=== PATIENT | male | born 1960 | race Caucasian/White ===

== ENCOUNTER 2017-09-19 10:52 | Inpatient (IN) | payer OTHER ==
[~2017-09-19] VITALS: Ht 190.5 cm; Wt 113.4 kg
[~2017-09-19 10:52] MED LIST: PERCOCET 5-3251 EACH PO
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
--- NOTE | 2017-09-19 13:33 | RADIOLOGY REPORT ---
EXAMINATION:\H\ \N\XR CHEST CLINICAL INFORMATION: Recent for rib fractures on the right side with increased pain. COMPARISON: Chest CT 09/18/2017. TECHNIQUE: Frontal view of the chest was obtained. FINDINGS: Study is limited by technique. Mildly displaced right lateral seventh through 10th rib fractures are better demonstrated on the prior CT study. There is a new small right apical pneumothorax. There is no mediastinal shift. There is no opacity at the medial right lung base that may reflect atelectasis, contusion, or pneumonia. Cardiac silhouette size is normal. IMPRESSION: - There is a new small right apical pneumothorax. - There is no opacity at the medial right lung base that may reflect atelectasis, contusion, or pneumonia. - Mildly displaced right lateral seventh through 10th rib fractures are better demonstrated on the prior CT study. Critical findings discussed with Dr. Siegel at 1:29 PM on 09/19/2017.
[2017-09-19 14:03] LABS: ABSOLUTE BASOPHIL COUNT 0 /CUMM (0.0-0.2); ABSOLUTE EOSINOPHIL COUNT 0.1 /CUMM (0.0-0.7); ABSOLUTE GRANULOCYTE CT 6.9 /CUMM (1.4-6.5); ABSOLUTE LYMPH COUNT 1.1 /CUMM (1.2-3.4); ABSOLUTE MONOCYTE COUNT 0.7 /CUMM (0.10-0.60); BASOPHIL % 0.3 % (0.0-2.0); EOSINOPHIL % 0.8 % (0-5); GRANULOCYTE % 79.1 % (42.2-75.2); HEMATOCRIT 44.8 % (42-52); MEAN CORPUSCULAR HGB 33.8 PG (27.0-31.0); MEAN CORPUSCULAR HGB CONC 34.1 G/DL (33.0-37.0); MEAN CORPUSCULAR VOLUME 99.1 FL (80.0-94.0); MEAN PLATELET VOLUME 9.5 FL (7.4-10.4); PLATELET COUNT 165 /CUMM (130-400); RBC DISTRIBUTION WIDTH 13.3 % (11.5-14.5); RED BLOOD CELL CT 4.52 /CUMM (4.70-6.10); WHITE BLOOD CELL COUNT 8.8 /CUMM (4.8-10.8)
--- NOTE | 2017-09-19 16:23 | CT SCAN REPORT ---
EXAMINATION: CT CHEST WITH CONTRAST CLINICAL INFORMATION: Atypical pneumonia. 4 rib fractures. COMPARISON: Chest x-ray 09/19/2017. CT chest 09/18/2017. TECHNIQUE: Multidetector volumetric CT imaging of the chest was obtained after the administration of 95 mL of Optiray 320 intravenous contrast without immediate adverse reactions. Axial MIP volume rendering provided. Sagittal and coronal reformatted images were obtained. DLP: 655.36 mGy-cm FINDINGS: LUNGS: There is dependent atelectasis/consolidation at both lung bases. These are new since the CT of chest 09/18/2017. The lungs are otherwise clear. The central bronchial airways remain open. There is no bronchiectasis. There is a small bleb at the medial left lung apex. There is a small thin-walled lung cyst in the left upper lobe. There is a thin-walled lung cyst also at the right middle lobe of the anterior medial right lung as well as a thin-walled lung cyst in the subpleural lung of the right upper lobe and adjacent intraparenchymal lung cyst in right upper lobe. MEDIASTINUM: No mediastinal mass. No hematoma or fluid collection. There is normal enhancement of the vasculature. There is no pericardial effusion. PLEURA: There is a small right-sided pneumothorax. The pneumothorax is new since the CAT scan of 09/18/2017, similar in volume to the chest x-ray of 09/19/2017, 12:13 PM. There are small dependent bilateral pleural effusions. The pleural effusions are new since the CT chest 09/18/2017. CHEST WALL/AXILLA: There is subcutaneous emphysema along the right lateral chest wall. The volume of the subcutis emphysema has increased since the CAT scan of 09/18/2017. Subcutaneous emphysema is associated with the previously seen fracture of the lateral seventh through 10th ribs. UPPER ABDOMEN: Unremarkable. OSSEOUS STRUCTURES: Fracture of the right lateral seventh through 10th ribs. Degenerative spondylosis of the spine with multilevel disc height narrowing and endplate spurring of the vertebrae. IMPRESSION: 1. Small right-sided pneumothorax with subcutaneous emphysema in the right axilla. 2. Fracture of the lateral seventh through 10th ribs 3. Bibasilar infiltrate/consolidation. 4. Small bibasilar pleural effusions.
--- NOTE | 2017-09-19 17:51 | Cons- Thoracic Surgery ---
Gui Lyon 09/19/17 1743: General Information and HPI Consulting Request Date of Consult: 09/19/17 Requested By: Dr Hernandez, ER Reason for Consult: multiple rib fractures, pneumothorax Source of Information: patient, old records Exam Limitations: no limitations History of Present Illness: This 57-year-old male, long-time smoker, here with complaints of severe right- sided rib and chest wall pain that resulted from a fall that he had down the stairs 2 days ago. He states he tripped and fell, injuring his right side, he came into the emergency room at the time and a CT scan was performed, I have reviewed the records, rib fractures laterally of ribs 7 through 10 were noted however patient, according to the notes, was doing well, his pain was controlled , he was not hypoxic and was discharged home with instructions for close follow- up. Pain medication at home was not helping him, his pain became more severe, he started feeling more short of breath, he could not get up out of a chair or out of the bed due to the pain. He started getting some mild productive sputum, no blood. He presented to the emergency room for further evaluation where another CT scan was performed which showed a small right apical pneumothorax and small amount of subcu air in the right axilla. Thoracic surgery was consulted for further evaluation and management Allergies/Medications Allergies: Coded Allergies: No Known Drug Allergies (NKDA 09/17/17) Home Med List: Oxycodone HCl/Acetaminophen (Percocet 5-325 MG Tablet) 5 MG-325 MG TABLET 1 TAB PO 4 TIMES/DAY PRN SEVERE PAIN Past History Medical History Cardiovascular: hypertension Surgical History Pertinent Surgical History: non-contributory Psychosocial History Smoking Status: Current Everyday Smoker Functional Ability ADLs Independent: dressing, eating, toileting, bathing. Review of Systems Review of Systems: Review of systems: See HPI, all other systems negative. Constitutional: No chills fever or weight loss HEENT: No visual changes no sore throat no congestion Cardiovascular: No chest pain ,palpitation , orthopnea or ankle swelling Skin: No jaundice no rashes Respiratory: See HPI GI: No nausea no vomiting : No dysuria no hematuria Musclulo skeletal: No back pain no neck pain, Neurologic: No numbness no confusion Psych: No stress anxiety or depression,. Heme/endocrine: No bruising no bleeding no polyuria or polydipsia Immunology: No splenectomy or history of AIDS Exam & Diagnostic Data Vital Signs and I&O Vital Signs Date Time Temp Pulse Resp B/P B/P Pulse O2 O2 Flow FiO2 Mean Ox Delivery Rate 09/19 1656 98.0 79 20 180/94 95 Room Air 09/19 1413 98.5 79 18 186/90 96 Room Air 09/19 1214 94 Room Air Room Air 09/19 1213 98.7 75 20 160/106 94 Room Air Room Air 09/19 1100 98.0 101 179/106 92 Room Air Intake & Output 09/19 1600 09/19 0800 09/19 0000 09/18 1600 09/18 0800 09/18 0000 Intake Total 0 Output Total Balance 0 Intake, Oral 0 Patient 255 lb Weight Weight Reported by Patient Measurement Method Physical Exam: Well-developed well-nourished person in no acute distress HEENT: Normal EENT exam, Pharynx normal. No swelling or edema. Neck: Supple, no lymphadenopathy, normal range of motion without pain or tenderness Trachea is midline, no deviation Cardiovascular: Regular rate and rhythms no murmurs, normal JVP Respiratory: Tenderness to the right midaxillary line diffusely. Small amount of ecchymosis noted. No subcu air was noted or crepitus was noted on exam. Patient exquisitely tender on exam. Had a difficult time taking a deep breath. Lung sounds show crackles noted bilaterally, right significantly more than left , mostly noted at the base. Also bilateral expiratory wheezing noted Breath sounds noted in all lung calderon Abdomen: Soft, nontender nondistended, no appreciable organomegaly. Normal bowel sounds. No ascites Extremity: No edema, no calf tenderness to palpation, normal and equal pulses. Neuro: Alert oriented x3, motor sensory normal, cranial nerves II through XII grossly intact. Skin: No appreciable rash on exposed skin, skin is warm and dry. Psych: Mood and affect is normal, memory and judgment is normal. Last 24 Hours of Labs: Laboratory Tests 09/19 1355 Chemistry Sodium (137 - 145 mmol/L) 141 Potassium (3.5 - 5.1 mmol/L) 4.0 Chloride (98 - 107 mmol/L) 104 Carbon Dioxide (22 - 30 mmol/L) 29 Anion Gap (5 - 16) 8 BUN (9 - 20 mg/dL) 17 Creatinine (0.7 - 1.2 mg/dL) 0.7 Estimated GFR (>60 ml/min) > 60 BUN/Creatinine Ratio (7 - 25 %) 24.3 Glucose (65 - 99 mg/dL) 99 Calcium (8.4 - 10.2 mg/dL) 8.8 Total Bilirubin (0.2 - 1.3 mg/dL) 1.6 H AST (17 - 59 U/L) 16 L ALT (21 - 72 U/L) 22 Alkaline Phosphatase (< 127 U/L) 73 Total Protein (6.3 - 8.2 g/dL) 6.7 Albumin (3.5 - 5.0 g/dL) 4.1 Globulin (1.9 - 4.2 gm/dL) 2.6 Albumin/Globulin Ratio (1.1 - 2.2 %) 1.6 Hematology CBC w Diff NO MAN DIFF REQ WBC (4.8 - 10.8 /CUMM) 8.8 RBC (4.70 - 6.10 /CUMM) 4.52 L Hgb (14.0 - 18.0 G/DL) 15.3 Hct (42 - 52 %) 44.8 MCV (80.0 - 94.0 FL) 99.1 H MCH (27.0 - 31.0 PG) 33.8 H MCHC (33.0 - 37.0 G/DL) 34.1 RDW (11.5 - 14.5 %) 13.3 Plt Count (130 - 400 /CUMM) 165 MPV (7.4 - 10.4 FL) 9.5 Gran % (42.2 - 75.2 %) 79.1 H Lymphocytes % (20.5 - 51.1 %) 12.3 L Monocytes % (1.7 - 9.3 %) 7.5 Eosinophils % (0 - 5 %) 0.8 Basophils % (0.0 - 2.0 %) 0.3 Absolute Granulocytes (1.4 - 6.5 /CUMM) 6.9 H Absolute Lymphocytes (1.2 - 3.4 /CUMM) 1.1 L Absolute Monocytes (0.10 - 0.60 /CUMM) 0.7 H Absolute Eosinophils (0.0 - 0.7 /CUMM) 0.1 Absolute Basophils (0.0 - 0.2 /CUMM) 0 Imaging Results: PATIENT: JACOB CRANE PRESENT AGE: 57 PATIENT ACCOUNT NO: [id number] : 60 LOCATION: [facility] ORDERING PHYSICIAN: Salvador RESTREPO SERVICE DATE: 09/19/171 EXAM TYPE: CAT - CT CHEST W IV CONTRAST EXAMINATION: CT CHEST WITH CONTRAST CLINICAL INFORMATION: Atypical pneumonia. 4 rib fractures. COMPARISON: Chest x-ray 09/19/2017. CT chest 09/18/2017. TECHNIQUE: Multidetector volumetric CT imaging of the chest was obtained after the administration of 95 mL of Optiray 320 intravenous contrast without immediate adverse reactions. Axial MIP volume rendering provided. Sagittal and coronal reformatted images were obtained. DLP: 655.36 mGy-cm FINDINGS: LUNGS: There is dependent atelectasis/consolidation at both lung bases. These are new since the CT of chest 09/18/2017. The lungs are otherwise clear. The central bronchial airways remain open. There is no bronchiectasis. There is a small bleb at the medial left lung apex. There is a small thin-walled lung cyst in the left upper lobe. There is a thin-walled lung cyst also at the right middle lobe of the anterior medial right lung as well as a thin-walled lung cyst in the subpleural lung of the right upper lobe and adjacent intraparenchymal lung cyst in right upper lobe. MEDIASTINUM: No mediastinal mass. No hematoma or fluid collection. There is normal enhancement of the vasculature. There is no pericardial effusion. PLEURA: There is a small right-sided pneumothorax. The pneumothorax is new since the CAT scan of 09/18/2017, similar in volume to the chest x-ray of 09/19/2017, 12:13 PM. There are small dependent bilateral pleural effusions. The pleural effusions are new since the CT chest 09/18/2017. CHEST WALL/AXILLA: There is subcutaneous emphysema along the right lateral chest wall. The volume of the subcutis emphysema has increased since the CAT scan of 09/18/2017. Subcutaneous emphysema is associated with the previously seen fracture of the lateral seventh through 10th ribs. UPPER ABDOMEN: Unremarkable. OSSEOUS STRUCTURES: Fracture of the right lateral seventh through 10th ribs. Degenerative spondylosis of the spine with multilevel disc height narrowing and endplate spurring of the vertebrae. IMPRESSION: 1. Small right-sided pneumothorax with subcutaneous emphysema in the right axilla. 2. Fracture of the lateral seventh through 10th ribs 3. Bibasilar infiltrate/consolidation. 4. Small bibasilar pleural effusions. DICTATED BY: Surjit Subramanian MD DATE/TIME DICTATED:09/19/171607 PIANO PLAYER:WEI DATE/TIME TRANSCRIBED:09/19/17 Assessment/Plan Assessment/Plan 57-year-old male with rib fractures on the right side, ribs 7 through 10 laterally as well as a small apical pneumothorax and small amount of subcu air that resulted from a fall 2 days ago. Recommend admission to the medical service for further monitoring of unstable vital signs. He may require submental oxygen if he becomes tachycardic or hypoxic. He should be given adequate pain control Recommend repeat chest x-ray in the morning DVT prophylaxis as he is largely immobile due to pain Concern for possible consolidation as seen on CT scan, patient without systemic signs of infection, no fever, normal white blood cell count, minimally productive sputum although he is a smoker and is at increased risk for pneumonia. Would hold off on antibiotics at this time and monitor for signs of infection. Case discussed with Dr. Donnelly, will follow along with you Problem List: 1. Rib fracture 2. Pneumothorax Consult Acknowledgment - Thank you for your consult request. Kike Donnelly MD 09/20/17 8801: Assessment/Plan Consult Acknowledgment - Thank you for your consult request. Attending Review Statement Attending Statement Attending Statement: examined this patient, discuss w/resident/PA/TUBERCULOSIS SPECIALIST, agreed w/resident/PA/TUBERCULOSIS SPECIALIST Attending Assessment/Plan: Given the fact that the patient is more than 48 hours out from the injury I agree that no trauma center transfer is necessary. I am concerned that the findings at the right base might be related to a pulmonary contusion but given his clinical stability I think we are okay with observation alone. The tiny amount of air in the right hemithorax does not require any degree of intervention. Main issue is 1 of appropriate pain management.
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
[2017-09-19 20:27] VITALS: BP 180/90
[2017-09-19 22:49] VITALS: BP 180/80
[2017-09-20 00:33] VITALS: BP 166/90
[2017-09-20 07:03] VITALS: BP 168/86
--- NOTE | 2017-09-20 07:21 | PN- Housestaff ---
Subjective Follow-up For: Rib fracture with associated pneumothorax Uncontrolled hypertension Subjective: No overnight events. Patient remained afebrile. Seen and examined this morning. Patient denied short of breath, nausea, vomiting, chills, fever, abdominal pain, palpitation, orthopnea and dysuria. Patient reported that he has chest pain on the right side due to broken rib 11/12 and it increases with taking the breast. Patient also reported having cough probably due to atelectasis. There is no subcutaneous emphysema or bruise on the right side. Patient having shallow breathing that's why he was put on 2 L of oxygen although he was maintaining a saturation above 92% on room air. Review of Systems Constitutional: Denies: chills, fever, weakness. EENTM: Reports: no symptoms. Cardiovascular: Reports: chest pain. Denies: orthopena, palpitations, syncope. Respiratory: Reports: cough. Denies: short of breath, sputum production, wheezing. Gastrointestinal: Denies: abdominal pain, constipation, diarrhea, nausea, vomiting. Genitourinary: Reports: no symptoms. Musculoskeletal: Reports: see HPI. Neurological/Psychological: Reports: no symptoms. Objective Last 24 Hrs of Vital Signs/I&O Vital Signs Date Time Temp Pulse Resp B/P B/P Pulse O2 O2 Flow FiO2 Mean Ox Delivery Rate 09/20 0903 97 Nasal 2.0L Cannula 09/20 0800 96 Nasal 2.0L Cannula 09/20 0703 97.8 72 18 168/86 96 09/20 0033 97.9 78 17 166/90 97 09/19 2325 180/80 09/19 2249 98.1 86 20 180/80 96 Nasal 2.0L Cannula 09/19 2135 Nasal 2.0L Cannula 09/19 2026 97.9 80 22 180/90 92 Room Air 09/20 2019 96 Nasal 2.0L Cannula 09/20 2003 97.8 96 14 144/84 94 Room Air 09/19 1656 98.0 79 20 180/94 95 Room Air 09/19 1413 98.5 79 18 186/90 96 Room Air 09/19 1214 94 Room Air Room Air 09/19 1213 98.7 75 20 160/106 94 Room Air Room Air Intake & Output 09/20 1600 09/20 0800 09/20 0000 Intake Total 500 490 Output Total 200 500 Balance 300 -10 Intake, IV 20 10 Intake, Oral 480 480 Output, Urine 200 500 Patient 250 lb 250 lb Weight Physical Exam General Appearance: Alert, Oriented X3, Cooperative Skin Temp/Moisture Exam: Warm/Dry Sepsis Skin Exam (color): Normal for Ethnicity HEENT: Atraumatic, PERRLA, EOMI Neck: Supple Cardiovascular: Normal S1, Normal S2 Lungs: Clear to Auscultation Abdomen: Soft, No Tenderness Neurological: Normal Speech, Strength at 5/5 X4 Ext, Normal Tone Extremities: No Edema Assessment/Plan Assessment: 57 YO M smoker (one and half pack/d for 30 yrs) with PMH of HTN and nephrolithiasis presented to ED with chief complaint of right-sided chest pain after fall. We are seeing the patient for following problems: Rib fracture with associated pneumothorax: -Patient had refractions after mechanical fall from stairs. -Pain control with tramadol 30 mg every 6 when necessary and Dilaudid for breakthrough pain. -Monitor for hemodynamic instability and shortness of breath. -On physical examination there is no subcutaneous emphysema. -Incentive spirometry to expand his lungs as he is developed atelectasis. -Incentive patient's shallow breathing he was put on 2 L of oxygen although he was maintaining saturation 92% on room air. -We will keep him off antibiotics as he is afebrile although his WBC count is elevated. Patient having atelectasis on imaging study. -Follow-up CT surgery recommendations -Repeat chest x-ray that was portable, didn't show any right-sided hemopneumothorax or lung contusion. Uncontrolled hypertension: -Patient was not on any antihypertensive medications although he has history of hypertension. -Patient had persistent elevated blood pressure so we will start him on antihypertensive medications. -On admission patient's blood pressure was elevated H/O smoking: -Smoking cessation counselling. -Nicotine patch as needed. History of COPD: -We will continue albuterol inhaler -Although patient was not using any inhaler at home. DVT prophylaxis: Mechanical and subcutaneous Lovenox CODE STATUS: Full code Problem List: 1. Pneumothorax 2. Rib fracture Pain Ratin Pain Location: right sided chest wall Pain Goal: Remain pain free Pain Plan: pain pathway Tomorrow's Labs & Rationales: none
[2017-09-20 09:08] LABS: ABSOLUTE BASOPHIL COUNT 0.1 /CUMM (0.0-0.2); ABSOLUTE EOSINOPHIL COUNT 0.2 /CUMM (0.0-0.7); ABSOLUTE GRANULOCYTE CT 4.9 /CUMM (1.4-6.5); ABSOLUTE LYMPH COUNT 1.1 /CUMM (1.2-3.4); ABSOLUTE MONOCYTE COUNT 0.6 /CUMM (0.10-0.60); BASOPHIL % 0.8 % (0.0-2.0); EOSINOPHIL % 2.9 % (0-5); GRANULOCYTE % 71.2 % (42.2-75.2); HEMATOCRIT 42.2 % (42-52); MEAN CORPUSCULAR HGB 34.3 PG (27.0-31.0); MEAN CORPUSCULAR HGB CONC 34.5 G/DL (33.0-37.0); MEAN CORPUSCULAR VOLUME 99.3 FL (80.0-94.0); MEAN PLATELET VOLUME 10.1 FL (7.4-10.4); PLATELET COUNT 151 /CUMM (130-400); RBC DISTRIBUTION WIDTH 13.5 % (11.5-14.5); RED BLOOD CELL CT 4.25 /CUMM (4.70-6.10); WHITE BLOOD CELL COUNT 6.8 /CUMM (4.8-10.8)
--- NOTE | 2017-09-20 11:03 | RADIOLOGY REPORT ---
EXAMINATION: XR PORTABLE CHEST CLINICAL INFORMATION: Shortness of breath. COMPARISON: CT of the chest done on 09/19/2017. TECHNIQUE: Portable frontal semierect 70 degrees view of the chest was obtained. FINDINGS: The CT-detected displaced fractures of right lateral 7th through 10th ribs are not well visualized on this limited portable semierect frontal view of the chest. Subcutaneous emphysema however is visualized overlying the right lateral costophrenic sulcus region. There is no evidence of any definite pneumothorax or hemothorax identified. Both lungs are symmetrically expanded. The cardiomediastinal silhouette is within normal limits and is centrally located. Dedicated rib series may be considered if clinically appropriate for reevaluation of clinically known recent CT-detected right lower hemithoracic rib fractures. Visualized upper abdomen is unremarkable. IMPRESSION: 1. Clinically known displaced right hemithoracic rib fractures as were detected on the CT scan of the chest done on 09/19/2017 are not well visualized on this portable radiograph. Small subcutaneous emphysema however is visualized overlying the right lateral chest wall at the level of the lateral costophrenic sulcus. 2. No radiographic evidence of right-sided hemopneumothorax or lung contusion. Dedicated rib series may be considered if clinically appropriate for reevaluation of clinically known, recent CT-detected right lower hemithoracic rib fractures.
--- NOTE | 2017-09-20 14:23 | PN- Att Addend ---
Attending Addendum Attending Brief Note Patient seen and examined. Plan of care discussed with the medical team and the patient. Available lab work and radiology test reports were reviewed. Patient appears to be in [id number] distress due to pain. He is not able to take deep breath due to right chest pain. Exam: General: Patient awake alert oriented without any distress CVS: S1 plus S2 without any murmur or gallops Chest: Tender right lateral chest and appears to be taking shallow breaths. No subcutaneous emphysema under the skin is noted. Few scattered crepitation without any wheeze. There is no respiratory distress. 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 follow-up pneumothorax Current Medications Sig/Gisela Start time Last Medication Dose Route Stop Time Status Admin Albuterol Sulfate 3 ML BID 09/20 09 AC 09/20 INH 0902 Amlodipine Besylate 5 MG ONCE ONE 09/19 2215 DC 09/19 PO 09/19 2216 2325 Enoxaparin Sodium 40 MG DAILY 09/20 0900 AC 09/20 SC 0823 Hydromorphone HCl 2 MG Q4P PRN 09/20 1415 AC PO Hydromorphone HCl 2 MG Q4 HRS NEEDED PRN 09/20 0900 DC IV Hydromorphone HCl 2 MG Q6P PRN 09/19 1830 DC 09/20 IV 0406 Hydromorphone HCl 0 .STK-MED ONE 09/19 1700 DC .ROUTE Hydromorphone HCl 1 MG ONCE ONE 09/19 1645 DC 09/19 IV 09/19 1646 1700 Ketorolac 30 MG Q6P PRN 09/20 0915 AC 09/20 Tromethamine IV 0933 Ketorolac 15 MG Q6P PRN 09/19 1815 DC Tromethamine IV 09/21 1814 Nicotine 0 .STK-MED ONE 09/19 194 DC TOP Nicotine 21 MG DAILY 09/19 1856 AC 09/20 TOP 0823 Oxycodone HCl 5 MG Q6P PRN 09/19 1815 DC PO Tramadol HCl 0 .STK-MED ONE 09/19 191 DC PO Tramadol HCl 50 MG Q6P PRN 09/19 1830 DC 09/20 PO 0823 Laboratory Tests 09/20/17 0750: Anion Gap 11, Estimated GFR > 60, BUN/Creatinine Ratio 22.9, CBC w Diff NO MAN DIFF REQ, RBC 4.25 L, MCV 99.3 H, MCH 34.3 H, MCHC 34.5, RDW 13.5, MPV 10.1, Gran % 71.2, Lymphocytes % 16.5 L, Monocytes % 8.6, Eosinophils % 2.9, Basophils % 0.8, Absolute Granulocytes 4.9, Absolute Lymphocytes 1.1 L, Absolute Monocytes 0.6, Absolute Eosinophils 0.2, Absolute Basophils 0.1 09/19/17 1355: Anion Gap 8, Estimated GFR > 60, BUN/Creatinine Ratio 24.3, Glucose 99, Calcium 8.8, Total Bilirubin 1.6 H, Direct Bilirubin 0.3, AST 16 L, ALT 22, Alkaline Phosphatase 73, Total Protein 6.7, Albumin 4.1, Globulin 2.6, Albumin/Globulin Ratio 1.6, CBC w Diff NO MAN DIFF REQ, RBC 4.52 L, MCV 99.1 H, MCH 33.8 H, MCHC 34.1, RDW 13.3, MPV 9.5, Gran % 79.1 H, Lymphocytes % 12.3 L, Monocytes % 7.5, Eosinophils % 0.8, Basophils % 0.3, Absolute Granulocytes 6.9 H, Absolute Lymphocytes 1.1 L, Absolute Monocytes 0.7 H, Absolute Eosinophils 0.1, Absolute Basophils 0 Vital Signs Date Time Temp Pulse Resp B/P B/P Pulse O2 O2 Flow FiO2 Mean Ox Delivery Rate 09/20 0903 97 Nasal 2.0L Cannula 09/20 0800 96 Nasal 2.0L Cannula 09/20 0703 97.8 72 18 168/86 96 09/20 0033 97.9 78 17 166/90 97 09/19 2325 180/80 09/19 2249 98.1 86 20 180/80 96 Nasal 2.0L Cannula 09/19 2134 Nasal 2.0L Cannula 09/19 2026 97.9 80 22 180/90 92 Room Air 09/20 2019 96 Nasal 2.0L Cannula 09/20 2003 97.8 96 14 144/84 94 Room Air 09/19 1656 98.0 79 20 180/94 95 Room Air Intake & Output 09/20 1600 09/20 0800 09/20 0000 Intake Total 500 490 Output Total 200 500 Balance 300 -10 Intake, IV 20 10 Intake, Oral 480 480 Output, Urine 200 500 Patient 250 lb 250 lb Weight Chest x-ray 1. Clinically known displaced right hemithoracic rib fractures as were detected on the CT scan of the chest done on 09/19/2017 are not well visualized on this portable radiograph. Small subcutaneous emphysema however is visualized overlying the right lateral chest wall at the level of the lateral costophrenic sulcus. 2. No radiographic evidence of right-sided hemopneumothorax or lung contusion. Dedicated rib series may be considered if clinically appropriate for reevaluation of clinically known, recent CT-detected right lower hemithoracic rib fractures.
--- NOTE | 2017-09-20 14:49 | PN- Thoracic Surgery ---
Subjective Subjective: Patient is having a considerable amount of pain with breathing. He is unable to move around in any comfortable way. Recent changes were made to his pain medication. Objective Vital Signs and I&Os Vital Signs Date Time Temp Pulse Resp B/P B/P Pulse O2 O2 Flow FiO2 Mean Ox Delivery Rate 09/20 0903 97 Nasal 2.0L Cannula 09/20 0800 96 Nasal 2.0L Cannula 09/20 0703 97.8 72 18 168/86 96 09/20 0033 97.9 78 17 166/90 97 09/19 2325 180/80 09/19 2249 98.1 86 20 180/80 96 Nasal 2.0L Cannula 09/19 2135 Nasal 2.0L Cannula 09/197 97.9 80 22 180/90 92 Room Air 09/20 2019 96 Nasal 2.0L Cannula 09/20 2003 97.8 96 14 144/84 94 Room Air 09/19 1656 98.0 79 20 180/94 95 Room Air Intake & Output 09/20 1600 09/20 0800 09/20 0000 09/19 1600 09/19 0800 09/19 0000 Intake Total 620 500 490 0 Output Total 400 200 500 Balance 220 300 -10 0 Intake, IV 20 10 Intake, Oral 620 480 480 0 Number 0 Bowel Movements Output, Urine 400 200 500 Patient 250 lb 250 lb 255 lb Weight Weight Reported by Patient Measurement Method Physical Exam: Fair amount of splinting on the right side related to pleuritic pain. There is no appreciable crepitus. The breath sounds are clear. Results Last 48 Hours of Labs: Laboratory Tests 09/20 09/19 0750 1355 Chemistry Sodium (137 - 145 mmol/L) 144 141 Potassium (3.5 - 5.1 mmol/L) 4.1 4.0 Chloride (98 - 107 mmol/L) 103 104 Carbon Dioxide (22 - 30 mmol/L) 30 29 Anion Gap (5 - 16) 11 8 BUN (9 - 20 mg/dL) 16 17 Creatinine (0.7 - 1.2 mg/dL) 0.7 0.7 Estimated GFR (>60 ml/min) > 60 > 60 BUN/Creatinine Ratio (7 - 25 %) 22.9 24.3 Glucose (65 - 99 mg/dL) 99 Calcium (8.4 - 10.2 mg/dL) 8.8 Total Bilirubin (0.2 - 1.3 mg/dL) 1.6 H Direct Bilirubin (< 0.4 mg/dL) 0.3 AST (17 - 59 U/L) 16 L ALT (21 - 72 U/L) 22 Alkaline Phosphatase (< 127 U/L) 73 Total Protein (6.3 - 8.2 g/dL) 6.7 Albumin (3.5 - 5.0 g/dL) 4.1 Globulin (1.9 - 4.2 gm/dL) 2.6 Albumin/Globulin Ratio (1.1 - 2.2 %) 1.6 Hematology CBC w Diff NO MAN DIFF REQ NO MAN DIFF REQ WBC (4.8 - 10.8 /CUMM) 6.8 8.8 RBC (4.70 - 6.10 /CUMM) 4.25 L 4.52 L Hgb (14.0 - 18.0 G/DL) 14.6 15.3 Hct (42 - 52 %) 42.2 44.8 MCV (80.0 - 94.0 FL) 99.3 H 99.1 H MCH (27.0 - 31.0 PG) 34.3 H 33.8 H MCHC (33.0 - 37.0 G/DL) 34.5 34.1 RDW (11.5 - 14.5 %) 13.5 13.3 Plt Count (130 - 400 /CUMM) 151 165 MPV (7.4 - 10.4 FL) 10.1 9.5 Gran % (42.2 - 75.2 %) 71.2 79.1 H Lymphocytes % (20.5 - 51.1 %) 16.5 L 12.3 L Monocytes % (1.7 - 9.3 %) 8.6 7.5 Eosinophils % (0 - 5 %) 2.9 0.8 Basophils % (0.0 - 2.0 %) 0.8 0.3 Absolute Granulocytes (1.4 - 6.5 /CUMM) 4.9 6.9 H Absolute Lymphocytes (1.2 - 3.4 /CUMM) 1.1 L 1.1 L Absolute Monocytes (0.10 - 0.60 /CUMM) 0.6 0.7 H Absolute Eosinophils (0.0 - 0.7 /CUMM) 0.2 0.1 Absolute Basophils (0.0 - 0.2 /CUMM) 0.1 0 Recent Imaging Studies: Chest x-ray stable with no new infiltrates and no pneumothorax. Assessment/Plan Assessment/Plan Expected pleuritic chest pain related to rib fractures. Our most important objective here is pain management. If there is any desaturation then he needs immediate transfer to a trauma facility.
[2017-09-20 15:21] VITALS: BP 170/96
--- NOTE | 2017-09-20 16:30 | Discharge Summary ---
Visit Information Visit Dates Admission Date: 09/19/17 Hospital Course Course Attending Physician: Damari Clayton MD Primary Care Physician: Patient Has No Primary Care Dr Hospital Course: Patient is a 57-year-old gentleman with no significant past medical history except for smoking(smokes one half pack a day for the last 30 years), history of arthritis nephrolithiasis presented to the ED for the evaluation of persistent right-sided chest pain. Patient was seen in the ER about 2 days ago when he tripped and fell on chairs after power breakdown from the stump missed 10-15 stairs, he had on the right side of his chest and couldn't able to get up due to excruciating pain. In the ER, images revealed multiple rib fractures and he was discharged patient was discharged with Percocet and Motrin , patient took pain medications at home without any improvement in his symptoms and came back to the ER again for better pain control. Chest x-ray/CT chest done in the ER revealed Fracture of the lateral seventh through 10th ribs along with Small right-sided pneumothorax with subcutaneous emphysema in the right axilla. Multiple rib fracture with associated small pneumothorax: Patient was admitted to the [facility] floor he was started on tramadol and IV Dilaudid for severe pain. Thoracic surgery consult was obtained as per recommendations patient was conservatively managed with IV Dilaudid, IV Tylenol and tramadol. He received incentive spirometry to prevent atelectasis. Despite of enough pain medications patient continued to remain in persistent pain and was transferred to trauma Center there are on for better pain management and if needed for any other interventions Uncontrolled hypertension: Patient's blood pressure was high on admission likely due to severe pain at the fracture sites, also he had a history of hypertension diagnosed as an outpatient but he was not on any medications. He was started on Norvasc 5 mg daily for better blood pressure control H/O smoking: Smoking cessation counseling was done and she was started on nicotine patch -Smoking cessation counselling. -Nicotine patch as needed. DVT prophylaxis: Mechanical and subcutaneous Lovenox CODE STATUS: Full code Allergies: Coded Allergies: No Known Drug Allergies (NKDA 09/17/17) Disposition Summary Disposition Principal Diagnosis: Multiple rib fracture with associated small pneumothorax Additional Diagnosis: Current smoker, uncontrolled blood pressure likely due to severe pain Discharge Disposition: other general hospital Discharge Instructions General Discharge Information Code Status: Full Code Patient's Diet: Regular diet Patient's Activity: As tolerated Follow-Up Instructions/Appts: Patient will be transferred to the trauma Center for better pain management and further interventions Medications at Discharge Discharge Medications: Continue taking these medications: Oxycodone HCl/Acetaminophen (Percocet 5-325 MG Tablet) 5 MG-325 MG TABLET 1 Tablet ORAL 4 TIMES A DAY as needed for SEVERE PAIN Qty = 10 Start taking the following new medications: Gabapentin (Gabapentin) 100 MG CAPSULE 1 Tablet ORAL EVERY 8 HOURS Qty = 30 No Refills Albuterol Sulfate (Albuterol Sulfate) 2.5 MG/3 ML (0.083 %) VIAL.NEB 3 Milliliters Inhale through mouth TWICE DAILY Qty = 4 No Refills Lidocaine (Lidocaine) 5 % ADH..PATCH 1 Patch On the skin DAILY Qty = 30 No Refills
[2017-09-20] MEDS ORDERED: LIDOCAINE1 EACH TOP (17:18)
[2017-09-20] MEDS ORDERED: GABAPENTIN100 M2 PO (17:18)
[2017-09-20] MEDS ORDERED: ALBUTEROL2.5 MG/3 M INH (17:23)
--- NOTE | 2017-09-20 17:27 | Patient Discharge Instructions ---
Discharge Instructions General Discharge Information You were seen/treated for: Rib fracture after a mechanical fall with associated pneumothorax Uncontrolled HTN Watch for these problems: Increase in pain, shortness of breath, light headedness, nausea, vomiting, syncope and palpitation. If you experience any of these symptoms please come to ED or call to your pcp. Special Instructions: Follow up with primary care physician in one week. Diet Recommended Diet: Regular Activity Activity Self Limited: Yes Acute Coronary Syndrome Inclusion Criteria At DC or during hospital stay patient has or had the following: ACS DIAGNOSIS No Discharge Core Measures Meds if any: Prescribed or Continued at Discharge Meds if any: NOT Prescribed or Continued at Discharge Congestive Heart Failure Inclusion Criteria At DC or during hospital stay patient has or had the following: CHF DIAGNOSIS No Discharge Core Measures Meds if any: Prescribed or Continued at Discharge Meds if any: NOT Prescribed or Continued at Discharge Cerebrovascular accident Inclusion Criteria At DC or during hospital stay patient has or had the following: CVA/TIA Diagnosis No Discharge Core Measures Meds if any: Prescribed or Continued at Discharge Meds if any: NOT Prescribed or Continued at Discharge Venous thromboembolism Inclusion Criteria VTE Diagnosis No VTE Type NONE VTE Confirmed by (Test) NONE Discharge Core Measures - Per Current guidelines, there needs to be overlap - treatment for the first 5 days of Warfarin therapy. - If discharged on Warfarin prior to 5 days of - overlap therapy, the patient will need to be - assessed for post discharge needs including - *Post discharge parental anticoagulation - *Warfarin and/or parental anticoagulation education - *Follow up date to check INR post discharge At least 5 days overlap therapy as Inpatient No Meds if any: Prescribed or Continued at Discharge Note: Overlap Therapy is Warfarin and Anticoagulant Meds if any: NOT Prescribed or Continued at Discharge
[2017-09-20 22:00] VITALS: BP 164/86
[2017-09-21 07:31] VITALS: BP 166/93
--- NOTE | 2017-09-21 09:02 | PN- Housestaff ---
Asia GUIDO,Swati 09/21/17 0902: Subjective Follow-up For: Rib fracture with associated pneumothorax Uncontrolled hypertension Subjective: Patient had no overnight events, he denies shortness of breath, nausea, vomiting , abdominal pain. Patient continues to have chest pain that is worse on inspiration and patient continues to have a cough. Patient continues on 2 L of oxygen and is satting at 96%. Review of Systems Constitutional: Reports: no symptoms. EENTM: Reports: no symptoms. Cardiovascular: Reports: chest pain. Respiratory: Reports: cough. Gastrointestinal: Reports: no symptoms. Musculoskeletal: Reports: no symptoms. Skin: Reports: no symptoms. Objective Last 24 Hrs of Vital Signs/I&O Vital Signs Date Time Temp Pulse Resp B/P B/P Pulse O2 O2 Flow FiO2 Mean Ox Delivery Rate 09/21 1600 Nasal 2.0L Cannula 09/21 1412 98.1 83 20 142/66 96 09/21 1040 95 Nasal 2.0L Cannula 09/21 0848 76 166/93 09/21 0731 98.1 76 20 166/93 96 Nasal Cannula 09/21 0229 95 09/21 0000 97 Nasal 2.0L Cannula 09/20 2200 98.6 81 20 164/86 97 Nasal 2.0L Cannula 09/20 1949 96 Nasal 2.0L Cannula Intake & Output 09/21 1600 09/21 0800 09/21 0000 Intake Total 800 Output Total 400 400 600 Balance 400 -400 -600 Intake, Oral 800 Output, Urine 400 400 600 Physical Exam General Appearance: Alert, Oriented X3, Cooperative Skin: No Rashes, No Breakdown, No Significant Lesion Skin Temp/Moisture Exam: Warm/Dry Sepsis Skin Exam (color): Normal for Ethnicity HEENT: Atraumatic, EOMI, Mucous Membr. moist/pink Cardiovascular: Regular Rate, Normal S1, Normal S2, No Murmurs Lungs: Clear to Auscultation, Normal Air Movement Abdomen: Normal Bowel Sounds, Soft, No Tenderness Extremities: No Clubbing, No Cyanosis, No Edema Current Medications: Current Medications Sig/Gisela Start time Last Medication Dose Route Stop Time Status Admin Acetaminophen 1,000 MG TID 09/20 1516 DC 09/21 IV 09/21 1515 1336 Albuterol Sulfate 3 ML BID 09/20 0900 AC 09/21 INH 1040 Amlodipine Besylate 2.5 MG DAILY 09/20 1737 AC 09/21 PO 0848 Docusate Sodium 100 MG DAILY NEEDED PRN 09/21 0800 AC 09/21 PO 0848 Enoxaparin Sodium 40 MG DAILY 09/20 0900 AC 09/21 SC 0852 Gabapentin 100 MG Q8 09/20 1534 AC 09/21 PO 1336 Hydromorphone HCl 3 MG Q2P PRN 09/20 1530 AC 09/21 IV 1649 Ketorolac 30 MG Q6P PRN 09/20 1530 AC Tromethamine IV Lidocaine 1 PAT DAILY@1800 09/21 1800 AC 09/21 EXT 1806 Lidocaine 1 PAT DAILY 09/20 1534 DC 09/20 EXT 1803 Nicotine 21 MG DAILY 09/19 1856 AC 09/21 TOP 0848 Polyethylene Glycol 17 GM DAILY 09/21 0900 AC 09/21 PO 0848 Senna/Docusate Sodium 2 TAB DAILY PRN 09/21 0800 AC 09/21 PO 0848 Assessment/Plan Assessment: 57 YO M smoker (one and half pack/d for 30 yrs) with PMH of HTN and nephrolithiasis presented to ED with chief complaint of right-sided chest pain after fall. We are seeing the patient for following problems: Rib fracture with associated pneumothorax: -Patient had refractions after mechanical fall from stairs. -Pain control with tramadol 30 mg every 6 when necessary and Dilaudid for breakthrough pain. -Monitor for hemodynamic instability and shortness of breath. -On physical examination there is no subcutaneous emphysema. -Incentive spirometry to expand his lungs as he is developed atelectasis. 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 Patient having atelectasis on imaging study. -Chest x-ray was done which showed left basilar atelectasis and no definitive right-sided pneumothorax. -Follow-up CT surgery recommendations who have suggested that if the patient has any oxygen desaturation he should be transferred to a trauma center Uncontrolled hypertension: -Patient was not on any antihypertensive medications although he has history of hypertension. -Patient had persistent elevated blood pressure so we will start him on antihypertensive medications. -On admission patient's blood pressure was elevated and this morning it is 166/ 93, this afternoon 142/66 H/O smoking: -Smoking cessation counselling. -Nicotine patch as needed. History of COPD: -We will continue albuterol inhaler -Although patient was not using any inhaler at home. DVT prophylaxis: Mechanical and subcutaneous Lovenox CODE STATUS: Full code Problem List: 1. Pneumothorax 2. Rib fracture Pain Ratin Pain Location: Right-sided chest, worse on breathing Pain Goal: Pain 4 or less Pain Plan: Pain pathway Tomorrow's Labs & Rationales: elvin Perez MD,Amir 09/21/17 1354: Attending MD Review Statement Attending Statement Attending MD Statement: examined this patient, discuss w/resident/PA/LUBRICATOR GRANULATOR, agreed w/resident/PA/LUBRICATOR GRANULATOR, reviewed EMR data (avail), discussed with nursing Attending Assessment/Plan: Mr. Hyatt was seen and evaluated. Denies any SOB. Pain adequately controlled. Was evaluated by CTS --f/u CXR readings --plan for tx to trauma facility if desaturation as per CTS --rest of the plan as per resident's note
[2017-09-21 14:12] VITALS: BP 142/66
--- NOTE | 2017-09-21 15:57 | RADIOLOGY REPORT ---
EXAMINATION: XR PORTABLE CHEST CLINICAL INFORMATION: Right-sided chest pain. Multiple right rib fractures and pneumothorax. COMPARISON: September 20, 2017 and studies dating back to September 17, 2017 TECHNIQUE: Portable frontal view of the chest was obtained. FINDINGS: The known right sided rib fractures are not easily seen on this plain film study. No definite pneumothorax is seen either. There is some left base airspace disease likely related to atelectasis. No significant pleural effusion. Heart normal size. No evidence of pulmonary edema. IMPRESSION: Left base atelectasis. No definite right-sided pneumothorax identified on this portable study.
[2017-09-21 22:46] VITALS: BP 112/76
[2017-09-22 06:57] VITALS: BP 128/69
--- NOTE | 2017-09-22 10:15 | PN- Housestaff ---
Asia GUIDO,Swati 09/22/17 1015: Subjective Follow-up For: Rib fracture with associated pneumothorax Subjective: Patient states that his right chest pain is better, was constant before but now comes and goes. He notes less coughing in general but states that he now notes that he is coughing up sputum. Review of Systems Constitutional: Reports: no symptoms. EENTM: Reports: no symptoms. Cardiovascular: Reports: chest pain. Respiratory: Reports: cough, sputum production. Gastrointestinal: Reports: no symptoms. Genitourinary: Reports: no symptoms. Musculoskeletal: Reports: no symptoms. Skin: Reports: no symptoms. Neurological/Psychological: Reports: no symptoms. Objective Last 24 Hrs of Vital Signs/I&O Vital Signs Date Time Temp Pulse Resp B/P B/P Pulse O2 O2 Flow FiO2 Mean Ox Delivery Rate 09/22 0910 92 Nasal 1.0L Cannula 09/22 0837 74 130/70 09/22 0800 Nasal 1.0L Cannula 09/22 0657 99.1 95 20 128/69 95 Nasal 1.0L Cannula 09/22 0000 Nasal 1.0L Cannula 09/21 2246 98.9 79 20 112/76 96 Nasal 1.0L Cannula 09/21 1935 97 Nasal 2.0L Cannula 09/21 1600 Nasal 2.0L Cannula Intake & Output 09/22 1600 09/22 0800 09/22 0000 Intake Total 200 Output Total 375 Balance -175 Intake, Oral 200 Output, Urine 375 Physical Exam General Appearance: Alert, Oriented X3, Cooperative, No Acute Distress Skin: No Rashes, No Breakdown, No Significant Lesion Skin Temp/Moisture Exam: Warm/Dry Sepsis Skin Exam (color): Normal for Ethnicity HEENT: Atraumatic, EOMI, Mucous Membr. moist/pink Cardiovascular: Regular Rate, Normal S1, Normal S2, No Murmurs Lungs: Clear to Auscultation, Normal Air Movement Abdomen: Normal Bowel Sounds, Soft, No Tenderness, No Hepatospenomegaly Neurological: Normal Speech Current Medications: Current Medications Sig/Gisela Start time Last Medication Dose Route Stop Time Status Admin Acetaminophen 1,000 MG TID 09/20 1516 DC 09/21 IV 09/21 1515 1336 Albuterol Sulfate 3 ML BID 09/20 0900 AC 09/22 INH 0907 Amlodipine Besylate 2.5 MG DAILY 05/18 1737 AC 09/22 PO 0837 Docusate Sodium 100 MG DAILY NEEDED PRN 09/21 0800 AC 09/21 PO 0848 Enoxaparin Sodium 40 MG DAILY 09/20 0900 AC 09/22 SC 0837 Gabapentin 100 MG Q8 09/20 1534 AC 09/22 PO 1319 Hydromorphone HCl 3 MG Q2P PRN 09/20 1530 AC 09/22 IV 1324 Ketorolac 30 MG Q6P PRN 09/20 1530 AC Tromethamine IV Lidocaine 1 PAT DAILY@1800 09/21 1800 AC 09/21 EXT 1806 Nicotine 21 MG DAILY 09/19 1856 AC 09/22 TOP 0647 Polyethylene Glycol 17 GM DAILY 09/21 0900 AC 09/21 PO 0848 Senna/Docusate Sodium 2 TAB DAILY PRN 09/21 08 AC 09/21 PO 0848 Assessment/Plan Assessment: 57 YO M smoker (one and half pack/d for 30 yrs) with PMH of HTN and nephrolithiasis presented to ED with chief complaint of right-sided chest pain after fall. We are seeing the patient for following problems: Rib fracture with associated pneumothorax: -Patient had refractions after mechanical fall from stairs. -Pain control with tramadol 30 mg every 6 when necessary and Dilaudid for breakthrough pain. -Monitor for hemodynamic instability and shortness of breath. -On physical examination there is no subcutaneous emphysema. -Incentive spirometry to expand his lungs as he is developed atelectasis. 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 -We will keep him off antibiotics as he is afebrile and his WBC count is normal. patient having atelectasis on imaging study. -Chest x-ray was done which showed left basilar atelectasis and no definitive right-sided pneumothorax. -Follow-up CT surgery recommendations who have suggested that if the patient has any oxygen desaturation he should be transferred to a trauma center -Follow up with CT surgery tomorrow Uncontrolled hypertension: -Patient was not on any antihypertensive medications although he has history of hypertension. -Patient had persistent elevated blood pressure so we will continue him on his amlodipine H/O smoking: -Smoking cessation counselling. -Nicotine patch as needed. History of COPD: -We will continue albuterol inhaler -Although patient was not using any inhaler at home. DVT prophylaxis: Mechanical and subcutaneous Lovenox CODE STATUS: Full code Problem List: 1. Pneumothorax 2. Rib fracture Pain Ratin Pain Location: Right chest Pain Goal: Pain 4 or less Pain Plan: Pathway Tomorrow's Labs & Rationales: ERIKA Perez MD,Amir 09/22/17 1234: Attending MD Review Statement Attending Statement Attending MD Statement: examined this patient, discuss w/resident/PA/LIFE SCIENCE RESEARCH ASSISTANT, agreed w/resident/PA/LIFE SCIENCE RESEARCH ASSISTANT, discussed with family, reviewed EMR data (avail), discussed with nursing Attending Assessment/Plan: No overnight issues. Repeat CXR didn't reveal any ptx. Pt encouraged to use incentive spirometry. rest of the plan as per resident's note
[2017-09-22 14:35] VITALS: BP 144/78
[2017-09-22 21:57] VITALS: BP 126/64
[2017-09-23 06:41] VITALS: BP 145/90
--- NOTE | 2017-09-23 07:18 | PN- Housestaff ---
Subjective Follow-up For: Multiple rib fracture after mechanical fall. Subjective: No overnight events. Patient remained afebrile the pain is seen and examined this morning. He denied any shortness of breath, palpitation, nausea, vomiting, abdominal pain, lightheadedness and dysuria. Patient reported that his pain in the chest is better controlled with pain medication. Now he can take deep breaths. He doesn't report any shortness of breath. He reported intermittent cough and he is bringing yellow to green colored sputum. Patient is afebrile and his WBC count is within normal limits. As his pain is better controlled with pain medication we will discharge him to home. Patient is advised to follow his primary care physician within one week. Review of Systems Constitutional: Denies: chills, fever, weakness. EENTM: Reports: no symptoms. Cardiovascular: Reports: chest pain. Denies: orthopena, palpitations. Respiratory: Reports: cough, sputum production. Denies: short of breath. Gastrointestinal: Denies: abdominal pain, constipation, diarrhea, nausea, vomiting. Genitourinary: Reports: no symptoms. Musculoskeletal: Reports: see HPI. Neurological/Psychological: Reports: no symptoms. Objective Last 24 Hrs of Vital Signs/I&O Vital Signs Date Time Temp Pulse Resp B/P B/P Pulse O2 O2 Flow FiO2 Mean Ox Delivery Rate 09/23 1025 92 Room Air 09/23 0807 134/70 09/23 0800 Nasal 1.0L Cannula 09/23 0641 97.5 64 18 145/90 97 Nasal 2.0L Cannula 09/23 0000 97 Nasal 1.0L Cannula 09/22 2157 98.4 79 20 126/64 96 Room Air 09/22 1850 93 Nasal 1.0L Cannula 09/22 1600 Nasal 1.0L Cannula 09/22 1435 99.2 86 20 144/78 93 Intake & Output 09/23 1600 09/23 0800 09/23 0000 Intake Total Output Total Balance Number 0 Bowel Movements Physical Exam General Appearance: Alert, Oriented X3, Cooperative Skin Temp/Moisture Exam: Warm/Dry Sepsis Skin Exam (color): Normal for Ethnicity HEENT: Atraumatic, PERRLA, EOMI Neck: Supple Cardiovascular: Normal S1, Normal S2 Lungs: Clear to Auscultation Abdomen: Soft, No Tenderness Neurological: Normal Speech, Strength at 5/5 X4 Ext, Normal Tone Extremities: No Edema Assessment/Plan Assessment: 57 YO M smoker (one and half pack/d for 30 yrs) with PMH of HTN and nephrolithiasis presented to ED with chief complaint of right-sided chest pain after fall. We are seeing the patient for following problems: Rib fracture with associated pneumothorax: -Patient had refractions after mechanical fall from stairs. -She remained hemodynamically stable and there was no shortness of breath. -On physical examination there is no subcutaneous emphysema. And has breath sounds are equal both sides. -Incentive spirometry to expand his lungs as he is developed atelectasis. -We will keep him off antibiotics as he is afebrile and his WBC count is normal. patient having atelectasis on imaging study. -Chest x-ray was done which showed left basilar atelectasis and no definitive right-sided pneumothorax. -His pain is under control with naproxen, lidocaine patch and Dilaudid as needed. We will discharge the patient on naproxen lidocaine patch and [id number] YO M smoker (one and half pack/d for 30 yrs) with PMH of HTN and nephrolithiasis presented to ED with chief complaint of right-sided chest pain after fall. We are seeing the patient for following problems: Rib fracture with associated pneumothorax: -Patient had refractions after mechanical fall from stairs. -Monitor for hemodynamic instability and shortness of breath. -On physical examination there is no subcutaneous emphysema. -Incentive spirometry to expand his lungs as he is developed atelectasis. -We will keep him off antibiotics as he is afebrile and his WBC count is normal. patient having atelectasis on imaging study. -Chest x-ray was done which showed left basilar atelectasis and no definitive right-sided pneumothorax. -Patient is hemodynamically stable and on physical examination breath sounds are equally on both sides. -His pain is better controlled with naproxen, lidocaine patch and Dilaudid as needed. We will continue naproxen, lidocaine patch and Percocet after the discharge. Patient was advised to follow his primary care physician within one week. -He was advised to come to ED if his pain worsens or he becomes shortness of breath. Uncontrolled hypertension: -Patient was not on any antihypertensive medications although he has history of hypertension. -Continue 2.5 mg amlodipine daily. H/O smoking: -Smoking cessation counselling. -Nicotine patch as needed. History of COPD: -We will continue albuterol inhaler -Although patient was not using any inhaler at home. DVT prophylaxis: Mechanical and subcutaneous Lovenox CODE STATUS: Full code. Problem List: 1. Rib fracture Pain Ratin Pain Location: chest Pain Goal: Remain pain free Pain Plan: pain pathway Tomorrow's Labs & Rationales: none
[2017-09-23 08:07] VITALS: BP 134/70
[2017-09-23] MEDS ORDERED: NAPROXEN500 M2 PO ×2 (10:01→12:43)
[2017-09-23] MEDS ORDERED: DILAUDID2 M1 PO (10:01)
[2017-09-23] MEDS ORDERED: AMLODIPINE BES2.5 M1 PO ×2 (11:34→12:43)
--- NOTE | 2017-09-23 12:10 | PN- Att Addend ---
Attending Addendum Attending Brief Note Patient seen and examined. Plan of care discussed with the medical team and the patient. Available lab work and radiology test reports were reviewed. Patient appears to be comfortable and has been able to walk without getting short of breath. He still continues to have moderate right-sided chest pain intermittently. Also complains of coughing without any hemoptysis. No recent fever chills were noted. Exam: General: Patient awake alert oriented without any distress CVS: S1 plus S2 without any murmur or gallops Chest: Tender right lateral chest and occasional cough noted. No subcutaneous emphysema under the skin is noted. Few scattered crepitation without any wheeze. There is no respiratory distress. air entry is adequate Abdomen: Soft non-tender, bowel sound present, no guarding or rebound WEB CONTENT DEVELOPER: Awake alert oriented without any focal neuro deficit and follows commands appropriately Extremities: No edema; no clubbing or cyanosis noted Assessment * Fall * Multiple right rib fracture * Right pneumothorax- now resolved on most recent x-ray * Severe chest pain * Atelectasis * Uncontrolled hypertension likely due to anxiety and pain * History of COPD Plan * Continue heat pad to right chest; * Continue lidocaine patch to the right chest; * discontinue Dilaudid and Toradol * Start oral Motrin for mild to moderate pain 400 mg every 6 and oxycodone 5 mg every 6 when necessary for severe pain * Continue Neurontin 100 mg 3 times a day for pain 1 week * Please refer to PCP upon discharge * Patient can be discharged home today * Patient was instructed to report back to emergency room if he develops severe chest pain or increased difficulty breathing or fever or chills * Please give patient an incentive spirometer to go home with * Patient currently stable this point he is currently saturating 92% on room air and does not show any signs of respiratory distress. His recent x-ray 09/21 shows resolved pneumothorax. Current Medications Sig/Gisela Start time Last Medication Dose Route Stop Time Status Admin Albuterol Sulfate 3 ML BID 09/20 0900 AC 09/23 INH 1021 Amlodipine Besylate 2.5 MG DAILY 09/20 1737 AC 09/23 PO 0807 Docusate Sodium 100 MG DAILY NEEDED PRN 09/21 0800 AC 09/21 PO 0848 Enoxaparin Sodium 40 MG DAILY 09/20 0900 AC 09/23 SC 0807 Gabapentin 100 MG Q8 09/20 1534 AC 09/23 PO 0605 Guaifenesin 600 MG Q12 09/22 2100 AC 09/23 PO 0808 Hydromorphone HCl 2 MG Q4P PRN 09/23 1000 AC PO Hydromorphone HCl 3 MG Q2P PRN 09/20 1530 DC 09/23 IV 0808 Ketorolac 30 MG Q6P PRN 09/20 1530 DC 09/22 Tromethamine IV 1545 Lidocaine 1 PAT DAILY@1800 09/21 1800 AC 09/22 EXT 1758 Naproxen 500 MG BID PRN 09/23 1000 AC PO Nicotine 21 MG DAILY 09/19 1856 AC 09/23 TOP 0618 Polyethylene Glycol 17 GM DAILY 09/21 0900 AC 09/23 PO 0807 Senna/Docusate Sodium 2 TAB DAILY PRN 09/21 0800 AC 09/21 PO 0848 Vital Signs Date Time Temp Pulse Resp B/P B/P Pulse O2 O2 Flow FiO2 Mean Ox Delivery Rate 09/23 1025 92 Room Air 09/23 0807 134/70 09/23 0800 Nasal 1.0L Cannula 09/23 0641 97.5 64 18 145/90 97 Nasal 2.0L Cannula 09/23 0000 97 Nasal 1.0L Cannula 09/22 2157 98.4 79 20 126/64 96 Room Air 09/22 1850 93 Nasal 1.0L Cannula 09/22 1600 Nasal 1.0L Cannula 09/22 1435 99.2 86 20 144/78 93 Intake & Output 09/23 1600 09/23 0800 09/23 0000 Intake Total Output Total Balance Number 0 Bowel Movements Total time spent in preparation for discharge plan, patient education, and CMR preparation was 35 minutes.
[2017-09-23] MEDS ORDERED: PERCOCET 5-3251 EACH PO ×2 (12:22→12:43)
[2017-09-23] MEDS ORDERED: LIDOCAINE1 EACH TOP ×3 (12:22→16:16)
[2017-09-23] MEDS ORDERED: GABAPENTIN100 M2 PO ×3 (12:22→16:16)
[2017-09-23] MEDS ORDERED: ALBUTEROL2.5 MG/3 M INH (12:43)
== END 2017-09-23 14:18 | DRG 200 ==
LOC: ERH 10:52 → ERHI 17:30 → 2NB 17:30 → ENRESERV 19:44 → ENTRNSPT 19:58 → EDTRNSPT 19:59 → EDTRNSPTSTS 20:02 → 2NB 20:06 → CMPTRNSPT 20:33 → 2NB 09-20 08:48 → ENPENDDIS 09-23 12:49 → 2NB 09-23 14:18
PROVIDERS: Physician Assistant Medical; Student in an Organized Health Care Education/Training Program
DX: S27.0XXA Traumatic pneumothorax, initial encounter (principal); S22.41XA Multiple fractures of ribs, right side, initial encounter for closed fracture; W01.190A Fall on same level from slipping, tripping and stumbling with subsequent striking against furniture, initial encounter; Y92.019 Unspecified place in single-family (private) house as the place of occurrence of the external cause; I10 Essential (primary) hypertension; F17.210 Nicotine dependence, cigarettes, uncomplicated; J44.9 Chronic obstructive pulmonary disease, unspecified
CPT/HCPCS: 2NSBP; 36592; 71045; 82436; 96372; 96374; 99291; J0131; J1650; J1885

== ENCOUNTER → 2017-11-19 | Day surgery (SDC) | payer OTHER ==
[~2017-11-19] VITALS: Ht 190.5 cm; Wt 113.4 kg
[~2017-11-19] MED LIST changes: +ALBUTEROL2.5 MG/3 M INH; +AMLODIPINE BES2.5 M1 PO; +DILAUDID2 M1 PO; +GABAPENTIN100 M2 PO; +LIDOCAINE1 EACH TOP; +NAPROXEN500 M2 PO
--- NOTE | 2017-11-25 09:49 | Operative Report ---
Operative/Inv Procedure Report Surgery Date: 11/19/17 Name of Procedure: Robotic laparoscopic mesh repair of incarcerated right inguinal hernia Pre-Operative Diagnosis: Incarcerated right inguinal hernia Post-Operative Diagnosis: Same Estimated Blood Loss: scant Surgeon/Upholstery Cleaner: Susan GUIDO,Julio RESTREPO Anesthesia: general endotracheal tube Operative/Procedure Note Note: Patient was positioned supine. After successful induction of general anesthesia , the abdomen was prepped and draped in usual sterile fashion, based on body habitus we aimed our 3 trocar sites to be in the mid-epigastrium: the middle and 2 bilateral, local anesthetic was injected in a spot left lateral subcostal, a 1 cm incision was made with a 15 blade and then using a 5 mm optical trocar inserted into the 8 mm robotic trocar, attached to a 5 mm camera and the trocar was advanced through the abdominal wall watching on the screen, as the trocar passes through the layers, alternating colors, yellow fat white fascia red muscle, until the tip just seems to akins the inner thin peritoneal layer. At that point, I stop pushing and check if it's open by turning on the gas. If the belly insufflates then you know you can advance the trocar into an empty space more directly without injuring the viscera into the peritoneum and then the gas was turned on to 15 mm. We placed the other two 8 mm robotic trochars while watching with the camera bilaterally roughly in the same line, symmetrically.Then the Robot was moved to the patient, then docked and targeted. At this point you could see the inguinal hernia, with adherent fat going up into the defect. We then developed / started the peritoneal flap horizontally at the level of the iliac crest starting laterally to medial to umbilical ligament with cautery and then dissected within the flap the inguinal anatomy. Using mostly blunt dissection with a bipolar fenestrated grasper and a scissors, first Dominic's ligament is swept off medially, checking the medial spaces, direct and femoral. There were no hernias there. Then briefly skipping over the area of the iliac fat pad, we developed the iliopubic tract out laterally to the iliac crest. Then we returned to the area of the fat pad, laterally where the hernia sac and cord structures were adherent, coursing up into an attenuated deep ring. There was some preperitoneal fat up inside in front that was dragged down and out, along with the lip of the peritoneal sac down off the cord structures which form a triangle, blood vessels approaching laterally the vas medially with the apex at the deep ring, it was an attenuated sac but we did not put a hole in it. Once the hernia sac is from the vas / cord down to the below Dominic's medially at the bladder, and laterally the iliopubic tract below this, a Parietex sided mesh without the keyhole or the suture, is marked and stuffed down the camera trocar, then unfurled in a systematic fashion, to cover both the hernia and the direct spaces and to make sure its tucked below Dominic's ligament and in that crevice Retzius space by the bladder and laterally beneath the iliopubic tract without curling and superiorly towards the camera. There is a seamed part of the mesh, that covers the iliac fat pad like a skirt. The mesh was adjusted back and forth so the edges are not curling. There was some preperitoneal fat that we had brought down that helped hold the mesh down inferiorly, I placed 3 tacking sutures 3-0 Vicryl 1 on each side of the epigastrics and one lower at the top of Dominic's medially. Then we brought up the peritoneal flap and sewed it shut across with a 2-0 V lock. We then checked again for holes, then undocked, let rest of the gas escape, pulling out the instruments and trochars. Then we closed the 3 skin incisions with interrupted 4 -0 Monocryl followed by Mastisol, Steri-Strips and Band-Aids. Overall estimated blood loss was minimal, lap and sponge counts were correct, wound expectancy was clean, IV fluids crystalloid, complications none, patient tolerated the procedure well, did not significantly dumas during extubation and was returned to the recovery room in satisfactory condition.
== END ==
LOC: STS 01:32
DX: K40.30 Unilateral inguinal hernia, with obstruction, without gangrene, not specified as recurrent (principal); I10 Essential (primary) hypertension; R05 Cough; F17.200 Nicotine dependence, unspecified, uncomplicated; M19.90 Unspecified osteoarthritis, unspecified site
CPT/HCPCS: 49650; S2900; C1781; C9290; J0690; J1100; J1885; J2250; J2405